=== PATIENT | male | born 1960 | race Caucasian/White ===

== ENCOUNTER 2020-04-23 09:52 | Outpatient (NON) | payer OTHER, SELFPAY | END 2020-04-23 09:53 | LOC: ANHLAB 09:53 | PROVIDERS: PCP Internal Medicine; Visit Provider Orthopaedic Surgery | DX: M70.41 Prepatellar bursitis, right knee (principal) | CPT/HCPCS: 87070; 87075; 87147; 87186; 87205 ==

== ENCOUNTER 2024-12-28 16:13 | Emergency (ER) | payer OTHER, SELFPAY ==
--- OUTSIDE RECORDS SUMMARY | 2024-12-28 16:18 | XMS_ITS | Encounter Summary ---
Author Organization [facility] Address [address] [place] [address] Care Team Providers Care Ethnoarchaeology Professor Name Role Phone Kale Hartman MD Primary Care Provider [phone] Encounter Details Date Type Department Care Team (Latest Contact Info) Description 11/17/2024 Results Follow-Up [facility] Medical Group Family & Internal Medicine [facility] [address] [place] [address] [place] [id number] [place] [address] HEMOGLOBIN, GLYCOSYLATED Social History Tobacco Use Types Packs/Day Years Used Date Smoking Tobacco: Some Days Cigarettes Started: 1989 Smokeless Tobacco: Never Comments:Smokes 2-3 cigarett es every 2-3 days Alcohol Use Standard Drinks/Week Comments Not Currently 0 (1 standard drink = 0.6 oz pur e alcohol) occ PHQ-2 Answer Date Recorded Patient Health Questionnaire-2 Score 0 11/16/2024 Sex and Gender Information Value Date Recorded Sex Assigned at Male 05/25/2024 7:52 AM CASTINGS DRAFTER Legal Sex Male 8:01 PM CDT Gender Identity Male 05/15/2021 10:53 AM CASTINGS DRAFTER Sexual Orientation Straight 05/15/2021 10 :53 AM CASTINGS DRAFTER documented as of this encounter Progress Notes * Kale Hartman MD - 11/17/2024 10:58 AM CDT Pt is aware of these results and plan documented in this encounter Plan of Treatment Not on file documented as of this encounter Visit Diagnoses Not on filedocumented in this encounter Additional Health Concerns Assessment Noted Time PHQ-9 Depression Total Score: 0 09/17/19 8:28 AM CDT documented as of this encounter Care Teams Ethnoarchaeology Professor Relationship Specialty [place] [address] [place] [address] PCP - General FAMILY PRACTICE 09/02/20 documented as of this encounter
--- OUTSIDE RECORDS SUMMARY | 2024-12-28 16:18 | XMS_ITS | Encounter Summary ---
Author Organization [facility] Address [address] [place] [address] Care Team Providers Care Engraver Automatic Name Role Phone Kale Hartman MD Primary Care Provider [phone] Encounter Details Date Type Department Care Team (Late st Contact Info) Description 05/10/2023 Panera Breadt Message Enc [facility] Medical Group Family & Internal Medicine [facility] [address] [place] [address] [place] [address] [place] [address] Harman Cameron Social History Tobacco Use Types Packs/Day Years Used Date Smoking Tobacco: Some Days Cigarettes Started: 1989 Smokeless Tobacco: Never Comments:Smokes 2-3 cigarett es every 2-3 days Alcohol Use Standard Drinks/Week Comments Not Currently 0 (1 standard drink = 0.6 oz pur e alcohol) occ PHQ-2 Answer Date Recorded Patient Health Questionnaire-2 Score 0 10/07/2022 Sex and Gender Information Value Date Recorded Sex Assigned at Male 05/25/2024 7:52 AM AMPLIFIER MECHANIC Legal Sex Male 8:01 PM CDT Gender Identity Male 05/15/2021 10:53 AM AMPLIFIER MECHANIC Sexual Orientation Straight 05/15/2021 10 :53 AM AMPLIFIER MECHANIC documented as of this encounter Plan of Treatment Not on file documented as of this encounter Visit Diagnoses Not on filedocumented in this encounter Additional Health Concerns Assessment Noted Time PHQ-9 Depression Total Score: 0 09/17/19 21 8:28 AM CDT documented as of this encounter Care Teams Engraver Automatic Relationship Specialty [place] [address] [place] [address] PCP - General FAMILY PRACTICE 09/02/20 documented as of this encounter
--- OUTSIDE RECORDS SUMMARY | 2024-12-28 16:18 | XMS_ITS | Encounter Summary ---
Author Organization [facility] Address [address] [place] [address] Care Team Providers Care Ballast Regulator Operator Name Role Phone Shima Lucas MD Primary Care Provider Angela Melgar WOOD CLUB NECK WHIPPER Primary Care Provider Unav ailable Kale Hartman MD Primary Care Provider [phone] Encounter Details Date Type Department Care Team (Latest Contact Info) Description 01/31/2018 Abstract [facility] Medical Group Antonieta Elliott MD Social History Tobacco Use Types Packs/Day Years Used Date Smoking Tobacco: Never Assessed Sex and Gender Information Value Date Recorded Sex Assigned at Male 05/25/2024 7:52 AM OVERHEAD CRANE TECHNICIAN Legal Sex Male 8:01 PM CDT Gender Identity Male 05/15/2021 10:53 AM OVERHEAD CRANE TECHNICIAN Sexual Orientation Straight 05/15/2021 10 :53 AM OVERHEAD CRANE TECHNICIAN documented as of this encounter Plan of Treatment Not on file documented as of this encounter Visit Diagnoses Not on filedocumented in this encounter Additional Health Concerns Infection Onset Date Last Indicated Resolved Time MRSA 04/16/2018 04/16/2018 05/07/2022 9:16 AM OVERHEAD CRANE TECHNICIAN documented as of this encounter Care Teams Ballast Regulator Operator Relationship Specialty Start Date End Date Shima Lucas MD PCP - General INTERNAL MEDICINE 01/31/18 06/13/19 Angela Prcie NP PCP - General NURSE PRACTITIONER 06/14/19 09/01/20 [place] [address] [place] [address] PCP - General FAMILY PRACTICE 09/02/20 documented as of this encounter
--- OUTSIDE RECORDS SUMMARY | 2024-12-28 16:18 | XMS_ITS | Encounter Summary ---
Author Organization [facility] Address [address] [place] [address] Care Team Providers Care Explosives Handler Name Role Phone Kale Hartman MD Primary Care Provider [phone] Encounter Details Date Type Department Care Team (Late st Contact Info) Description 04/27/2022 Virtual Papert Message Enc [facility] Medical Group Family & Internal Medicine [facility] [address] [place] [address] Alicia Bertrand, [place] [address] [facility] [address] [place] [address] Fax number for work comp Social History Tobacco Use Types Packs/Day Years Used Date Smoking Tobacco: Some Days Cigarettes Started: 1989 Smokeless Tobacco: Never Comments:smokes 3 cigs per d ay (05/18/21) Alcohol Use Standard Drinks/Week Comments Not Currently 0 (1 standard drink = 0.6 oz pur e alcohol) occ PHQ-2 Answer Date Recorded Patient Health Questionnaire-2 Score 0 04/27/2022 Sex and Gender Information Value Date Recorded Sex Assigned at Male 05/25/2024 7:52 AM PICKLE CUTTER Legal Sex Male 8:01 PM CDT Gender Identity Male 05/15/2021 10:53 AM PICKLE CUTTER Sexual Orientation Straight 05/15/2021 10 :53 AM PICKLE CUTTER COVID-19 Exposure Response Date Recorded In the last 10 days, have yo u been in contact with someone who was confirmed or suspected to have Coronavirus/COVID-19? No / Unsure 04/29/2022 2:24 PM PICKLE CUTTER documented as of this encounter Functional Status * Over the past 2 weeks, how often have you been bothered by any of the following problems? Question Answer Date of Assessment Author Status Little interest or pleasure in doing things Not at all 04/27/2022 1:30 PM PICKLE CUTTER Lonnie Munoz MA Act dario Feeling down, depressed, or hopeless Not at all 04/27/2022 1:30 PM PICKLE CUTTER Lonnie Munoz MA Active Patient Health Questionnaire-2 Score 0 04/27/2022 1:30 PM PICKLE CUTTER Lonnie Munoz MA Active documented as of this encounter Plan of Treatment Not on file documented as of this encounter Visit Diagnoses Not on filedocumented in this encounter Additional Health Concerns Infection Onset Date Last Indicated Resolved Time MRSA 04/16/2018 04/16/2018 05/07/2022 9:16 AM PICKLE CUTTER Assessment Noted Time PHQ-9 Depression Total Score: 0 09/17/19 8:28 AM CDT documented as of this encounter Care Teams Explosives Handler Relationship Specialty [place] [address] [place] [address] PCP - General FAMILY PRACTICE 09/02/20 documented as of this encounter
--- OUTSIDE RECORDS SUMMARY | 2024-12-28 16:18 | XMS_ITS | Encounter Summary ---
Author Organization [facility] Address [address] [place] [address] Care Team Providers Care Electric Refrigerator Preparer Name Role Phone Shima Lucas MD Primary Care Provider Angela Melgar PACKAGING OPERATOR Primary Care Provider Unav ailable Kale Hartman MD Primary Care Provider [phone] Encounter Details Date Type Department Care Team (Late st Contact Info) Description 06/18/[address] [facility] Conversion , Generic Conversion, Social History Tobacco Use Types Packs/Day Years Used Date Smoking Tobacco: Never Assessed Sex and Gender Information Value Date Recorded Sex Assigned at Male 05/25/2024 7:52 AM LOAN COUNSELOR Legal Sex Male 8:01 PM CDT Gender Identity Male 05/15/2021 10:53 AM LOAN COUNSELOR Sexual Orientation Straight 05/15/2021 10 :53 AM LOAN COUNSELOR documented as of this encounter Plan of Treatment Not on file documented as of this encounter Visit Diagnoses Not on filedocumented in this encounter Additional Health Concerns Infection Onset Date Last Indicated Resolved Time MRSA 04/16/2018 04/16/2018 05/07/2022 9:16 AM LOAN COUNSELOR documented as of this encounter Care Teams Electric Refrigerator Preparer Relationship Specialty Start Date End Date Shima Lucas MD PCP - General INTERNAL MEDICINE 01/31/18 06/13/19 Angela Price NP PCP - General NURSE PRACTITIONER 06/14/19 09/01/20 [place] [address] [place] [address] PCP - General FAMILY PRACTICE 09/02/20 documented as of this encounter
--- OUTSIDE RECORDS SUMMARY | 2024-12-28 16:18 | XMS_ITS | Encounter Summary ---
Author Organization [facility] Address [address] [place] [address] Care Team Providers Care Infantryman Name Role Phone Kale Hartman MD Primary Care Provider [phone] Encounter Details Date Type Department Care Team (Late st Contact Info) Description 06/15/2023 Emunamedicat Message Enc [facility] Medical Group Family & Internal Medicine [facility] [address] [place] [address] [place]man [place] [id number] [place] [address] Request for a concrete mason Social History Tobacco Use Types Packs/Day Years [...] Sex Assigned at Male 05/25/2024 7:52 AM HAT CONDITIONER Legal Sex Male 8:01 PM CDT Gender Identity Male 05/15/2021 10:53 AM HAT CONDITIONER Sexual Orientation Straight 05/15/2021 10 :53 AM HAT CONDITIONER documented as of this encounter Plan of Treatment Not on file documented as of this encounter Visit Diagnoses Not on filedocumented in this encounter Additional Health Concerns Assessment Noted Time PHQ-9 Depression Total Score: 0 09/17/19 21 8:28 AM CDT documented as of this encounter Care Teams Infantryman Relationship Specialty [place] [address] [place] [address] PCP - General FAMILY PRACTICE 09/02/20 documented as of this encounter
--- OUTSIDE RECORDS SUMMARY | 2024-12-28 16:18 | XMS_ITS | Encounter Summary ---
Author Organization [facility] Address [address] [place] [address] Care Team Providers Care Tip Cementer Name Role Phone Kale Hartman MD Primary Care Provider [phone] Encounter Details Date Type Department Care Team (Late st Contact Info) Description 05/25/2024 [place] Digitalt Message Enc [facility] Medical Group Family & Internal Medicine [facility] [address] [place] [address] [place]man [place] [id number] [place] [address] Lantus Social History Tobacco Use Types Packs/Day Years [...] Sex Assigned at Male 05/25/2024 7:52 AM CREDIT PORTFOLIO MANAGER Legal Sex Male 8:01 PM CDT Gender Identity Male 05/15/2021 10:53 AM CREDIT PORTFOLIO MANAGER Sexual Orientation Straight 05/15/2021 10 :53 AM CREDIT PORTFOLIO MANAGER documented as of this encounter Progress Notes * Nat Mckeon MA - 05/28/2024 11:19 AM CST Informed pt of this IT PORTFOLIO MANAGER documented in this encounter Plan of Treatment Not on file documented as of this encounter Visit Diagnoses Not on filedocumented in this encounter Additional Health Concerns Assessment Noted Time PHQ-9 Depression Total Score: 0 09/17/19 21 8:28 AM CDT documented as of this encounter Care Teams Tip Cementer Relationship Specialty [place] [address] [place] [address] PCP - General FAMILY PRACTICE 09/02/20 documented as of this encounter
--- OUTSIDE RECORDS SUMMARY | 2024-12-28 16:18 | XMS_ITS | Encounter Summary ---
Author Organization [facility] Address [address] [place] [address] Care Team Providers Care Cane Weigher Name Role Phone Kale Hartman MD Primary Care Provider [phone] Encounter Details Date Type Department Care Team (Late st Contact Info) Description 03/06/2023 Implanett Message Enc [facility] Medical Group Family & Internal Medicine [facility] [id number] [place] [address] [place] [id number] [place] [address] Ozempic Social History Tobacco Use Types Packs/Day Years [...] Sex Assigned at Male 05/25/2024 7:52 AM PLANT DIRECTOR Legal Sex Male 8:01 PM CDT Gender Identity Male 05/15/2021 10:53 AM PLANT DIRECTOR Sexual Orientation Straight 05/15/2021 10 :53 AM PLANT DIRECTOR documented as of this encounter Progress Notes * Nat Mckeon MA - 03/07/2023 4:54 PM CST [facility] T DIRECTOR * Alicia Menezes RN - 03/07/2023 8:57 AM CST Printed to discuss with / Devan T DIRECTOR documented in this encounter Plan of Treatment Not on file documented as of this encounter Visit Diagnoses Not on filedocumented in this encounter Additional Health Concerns Assessment Noted Time PHQ-9 Depression Total Score: 0 09/17/19 8:28 AM CDT documented as of this encounter Care Teams Cane Weigher Relationship Specialty [place] [address] [place] [address] PCP - General FAMILY PRACTICE 09/02/20 documented as of this encounter
--- OUTSIDE RECORDS SUMMARY | 2024-12-28 16:18 | XMS_ITS | Encounter Summary ---
Author Organization [facility] Address [address] [place] [address] Care Team Providers Care Primer Waterproofing Machine Adjuster Name Role Phone Kale Hartman MD Primary Care Provider [phone] Encounter Details Date Type Department Care Team (Late st Contact Info) Description 04/07/2022 Dealer Ignition Message Enc [facility] Medical Group Family & Internal Medicine [facility] [address] [place] [address] Alicia Bertrand, SUPERVISOR SHIPPING [address] [facility] [address] [place] [address] Question regarding XR SHOULDER LT 3V Social History Tobacco Use Types Packs/Day Years Used Date Smoking Tobacco: Some Days Cigarettes Started: 1989 Smokeless Tobacco: Never Comments:smokes 3 cigs per d ay (05/18/21) Alcohol Use Standard Drinks/Week Comments Not Currently 0 (1 standard drink = 0.6 oz pur e alcohol) occ PHQ-2 Answer Date Recorded PHQ-2 Score - If the patient scores above 3, please move on to questions 3-9 0 11/16/2021 Sex and Gender Information Value Date Recorded Sex Assigned at Male 05/25/2024 7:52 AM CYBER CRIME INVESTIGATOR Legal Sex Male 8:01 PM CDT Gender Identity Male 05/15/2021 10:53 AM CYBER CRIME INVESTIGATOR Sexual Orientation Straight 05/15/2021 10 :53 AM CYBER CRIME INVESTIGATOR COVID-19 Exposure Response Date Recorded In the last 10 days, have yo u been in contact with someone who was confirmed or suspected to have Coronavirus/COVID-19? No / Unsure 04/05/2022 12:37 PM CYBER CRIME INVESTIGATOR documented as of this encounter Plan of Treatment Not on file documented as of this encounter Visit Diagnoses Not on filedocumented in this encounter Additional Health Concerns Infection Onset Date Last Indicated Resolved Time MRSA 04/16/2018 04/16/2018 05/07/2022 9:16 AM CYBER CRIME INVESTIGATOR Assessment Noted Time PHQ-9 Depression Total Score: 0 09/17/19 8:28 AM CDT documented as of this encounter Care Teams Primer Waterproofing Machine Adjuster Relationship Specialty [place] [address] [place] [address] PCP - General FAMILY PRACTICE 09/02/20 documented as of this encounter
--- OUTSIDE RECORDS SUMMARY | 2024-12-28 16:18 | XMS_ITS | Encounter Summary ---
Author Organization [facility] Address [address] [place] [address] Care Team Providers Care Diesel Engine Mechanic Name Role Phone Kale Hartman MD Primary Care Provider [phone] Encounter Details Date Type Department Care Team (Late st Contact Info) Description 08/11/2022 Neuravit Message Enc [facility] Medical Group Family & Internal Medicine [facility] [address] [place] [address] [place] [address] [place] [address] A1C test Social History Tobacco Use Types Packs/Day Years Used Date Smoking Tobacco: Some Days Cigarettes Started: 1989 Smokeless Tobacco: Never Comments:Smokes 2-3 cigarett es every 2-3 days Alcohol Use Standard Drinks/Week Comments Not Currently 0 (1 standard drink = 0.6 oz pur e alcohol) occ PHQ-2 Answer Date Recorded Patient Health Questionnaire-2 Score 0 06/01/2022 Sex and Gender Information Value Date Recorded Sex Assigned at Male 05/25/2024 7:52 AM BILLBOARD ERECTOR HELPER Legal Sex Male 8:01 PM CDT Gender Identity Male 05/15/2021 10:53 AM BILLBOARD ERECTOR HELPER Sexual Orientation Straight 05/15/2021 10 :53 AM BILLBOARD ERECTOR HELPER COVID-19 Exposure Response Date Recorded In the last 10 days, have yo u been in contact with someone who was confirmed or suspected to have Coronavirus/COVID-19? No / Unsure 08/11/2022 2:24 PM CDT documented as of this encounter Plan of Treatment Not on file documented as of this encounter Visit Diagnoses Not on filedocumented in this encounter Additional Health Concerns Assessment Noted Time PHQ-9 Depression Total Score: 0 09/17/19 21 8:28 AM CDT documented as of this encounter Care Teams Diesel Engine Mechanic Relationship Specialty [place] [address] [place] [address] PCP - General FAMILY PRACTICE 09/02/20 documented as of this encounter
--- OUTSIDE RECORDS SUMMARY | 2024-12-28 16:18 | XMS_ITS | Encounter Summary ---
Author Organization [facility] Address [address] [place] [address] Care Team Providers Care Repeat Chief Name Role Phone Kale Hartman MD Primary Care Provider [phone] Encounter Details Date Type Department Care Team (Late st Contact Info) Description 04/17/2022 Mobile Content Networkst Message Enc [facility] Medical Group Family & Internal Medicine [facility] [address] [place] [address] Alicia Bertrand, MANUFACTURING EXECUTIVE [address] [facility] [address] [place] [address] Left shoulder pain Social History Tobacco Use Types Packs/Day Years [...] Sex Assigned at Male 05/25/2024 7:52 AM KNOT BORER Legal Sex Male 8:01 PM CDT Gender Identity Male 05/15/2021 10:53 AM KNOT BORER Sexual Orientation Straight 05/15/2021 10 :53 AM KNOT BORER COVID-19 Exposure Response Date Recorded In the last 10 days, have yo u been in contact with someone who was confirmed or suspected to have Coronavirus/COVID-19? No / Unsure 04/19/2022 2:30 PM KNOT BORER documented as of this encounter Progress Notes * Hans Pino RN - 04/20/2022 3:10 PM CST Pt has not seen ortho yet. I provided him with the referral dept number to see where it was at. I see it was sent to Dr. Hickman. BORER * Alicia Bertrand NP - 04/20/2022 11:08 AM CST Have you been scheduled with orthopedics yet? BORER * Hans Pino RN - 04/19/2022 9:06 AM CST Please advise BORER documented in this encounter Plan of Treatment Not on file documented as of this encounter Visit Diagnoses Not on filedocumented in this encounter Additional Health Concerns Infection Onset Date Last Indicated Resolved Time MRSA 04/16/2018 04/16/2018 05/07/2022 9:16 AM KNOT BORER Assessment Noted Time PHQ-9 Depression Total Score: 0 09/17/19 8:28 AM CDT documented as of this encounter Care Teams Repeat Chief Relationship Specialty [place] [address] [place] [address] PCP - General FAMILY PRACTICE 09/02/20 documented as of this encounter
--- OUTSIDE RECORDS SUMMARY | 2024-12-28 16:18 | XMS_ITS | Encounter Summary ---
Author Organization [facility] Address [address] [place] [address] Care Team Providers Care Cement Finisher Name Role Phone Kale Hartman MD Primary Care Provider [phone] Encounter Details Date Type Department Care Team (Late st Contact Info) Description 07/19/[address] [facility] Medical Group Family & Internal Medicine [facility] [address] [place] [address] [place] [address] [place] [address] Orthopedic Referral Social History Tobacco Use Types Packs/Day Years [...] Sex Assigned at Male 05/25/2024 7:52 AM GOVERNMENT AFFAIRS DIRECTOR Legal Sex Male 8:01 PM CDT Gender Identity Male 05/15/2021 10:53 AM GOVERNMENT AFFAIRS DIRECTOR Sexual Orientation Straight 05/15/2021 10 :53 AM GOVERNMENT AFFAIRS DIRECTOR documented as of this encounter Progress Notes * Nat Mckeon MA - 07/20/2024 10:32 AM CDT Noted will informed that appt was made * Ebony Soto LPN - 07/20/2024 10:24 AM CDT Pt made appt for 07/24/24 with Devan documented in this encounter Plan of Treatment Not on file documented as of this encounter Visit Diagnoses Not on filedocumented in this encounter Additional Health Concerns Assessment Noted Time PHQ-9 Depression Total Score: 0 09/17/19 8:28 AM CDT documented as of this encounter Care Teams Cement Finisher Relationship Specialty [place] [address] [place] [address] PCP - General FAMILY PRACTICE 09/02/20 documented as of this encounter
--- OUTSIDE RECORDS SUMMARY | 2024-12-28 16:18 | XMS_ITS | Clinical Summary ---
Author Organization [facility] Address [address] [place] [id number] Care Team Providers Care Bailiff Name Role Phone Kale Hartman MD Primary Care Provider [phone] Allergies Active Allergy Reactions Criticality Noted Date Comments Penicillins Unknown,Anaphylaxis,Rash High 01/20/2005 Medications aspirin EC (ASPIRIN EC) 81 MG tablet Take 1 tablet (81 mg total) by mouth daily. Active vitamin D3, cholecalciferol, 5000 UNITS capsule cholecalciferol (vitamin D3) 125 mcg (5,000 unit) capsule TK 1 T PO QD Active omeprazole 20 MG capsule Take 1 capsule (20 mg total) by mouth daily. Active vitamin B-12 (CYANOCOBALAMIN) 1000 mcg tablet Take 1 tablet (1,000 mcg total) by mouth daily. Active Potassium 99 MG tablet Take 1 tablet by mouth daily. OTC Active vitamin C 1000 MG tablet Take 1 tablet (1,000 mg total) by mouth daily. Active Glucose Blood test stripIndications:Diab etes mellitus ([facility] HHS/HCC) Use to check blood sugar daily 100 strip 1 2022 Active SYNJARDY XR 25-1000 MG TABLET SR 24 HRIndications:Type 2 diabetes mellitus with unspecified complications ([facility] HHS/HCC) TAKE 1 TABLET BY MOUTH EVERY DAY 90 tablet 1 2024 Active insulin glargine (LANTUS SOLOSTAR) 100 UNIT/ML injection (PEN)Indications:Type 2 diabetes mellitus with unspecified complications ([facility] HHS/HCC) INJECT 10 UNITS INTO THE SKIN NIGHTLY AT BEDTIME 15 mL 2024 Active Insulin Pen Needle (BD PEN NEEDLE MINI ULTRAFINE) 31G X 5 MM MiscIndications:Type 2 diabetes mellitus without complication, with long-term current use of insulin ([facility]) USE ONE PEN NEEDLE DAILY TO INJECT LANTUS 90 each 1 2024 Active pioglitazone (ACTOS) 15 MG tabletIndications:Typ e 2 diabetes mellitus with unspecified complications ([facility]) Take 1 tablet by mouth once daily 90 tablet 2024 Active dulaglutide (TRULICITY) 3 MG/0.5ML injectionIndications: Type 2 diabetes mellitus with unspecified complications ([facility]) Inject 3 mg into the skin once a week. 2 mL 2 2024 Active atorvastatin (LIPITOR) 40 MG tabletIndications:Pur e hypercholesterolemia Take 1 tablet by mouth once daily 90 tablet 2024 Active lisinopril (PRINIVIL) 20 MG tabletIndications:Amanda benavides hypertension Take 1 tablet by mouth once daily 90 tablet 2024 Active atorvastatin (LIPITOR) 40 MG tabletIndications:Pur e hypercholesterolemia Take 1 tablet by mouth once daily 90 tablet 12/14 Discontinued dulaglutide (TRULICITY) 1.5 MG/0.5ML injectionIndications: Type 2 diabetes mellitus with unspecified complications ([facility]) Inject 1.5 mg into the skin once a week. 2 mL 5 11/29 Discontinued lisinopril (PRINIVIL) 20 MG tabletIndications:Amanda benavides hypertension Take 1 tablet by mouth once daily 90 tablet 12/24 Discontinued Active Problems Problem Noted Date Diagnosed Date Acute pain of left shoulder 04/14/2022 Encounter for screening colonoscopy 04/08/2022 Overview (04/08/2022): Added automatically from request for surgery [id number] Pain in right knee 06/10/2020 Prepatellar bursitis of right knee 03/18/2020 Serum calcium elevated 08/27/2014 Abnormal blood finding 05/24/2014 Generalized anxiety disorder 05/25/2013 Type 2 diabetes mellitus wit hout complication, with long-term current use of insulin ([facility]) 05/25/2013 Abnormal liver enzymes 09/05/2012 Fracture of foot 04/24/2012 Abdominal hernia 02/22/2012 Other specified dorsopathies, thoracic region Scabies 02/09/2012 Depression 01/17/2012 Fatigue 10/18/2011 Hyperlipidemia 10/18/2011 Hypertension 10/18/2011 Obstructive sleep apnea 10/18/2011 GERD (gastroesophageal reflux disease) Resolved Problems Problem Noted Date Diagnosed Date Resolved Date Encounter for preventive health examination 10/18/2011 09/22/2020 Encounters Date Type Department Care Team Description 11/17/2024 Results Follow-Up [facility] [address] [phone] Kale Hartman MD HEMOGLOBIN, GLYCOSYLATED 11/16/2024 3:40 PM CDT Office Visit [facility] [address] [phone] Kale Hartman MD Follow Up 11/16/2024 Travel from Last 3 Months Immunizations Immunization Administration Dates Next Due Influenza (Generic) 01/16/2013,01/17/2012 PFIZER COVID-19 (ORIGINAL FO RMULATION, PURPLE CAP) mRNA, LNP-S, PF, 30 MCG/0.3 ML DOSE 12/28/2020,12/07/2020 Td 08/17/2004 Tdap (Generic) 09/03/2016 Family History Medical History Relation Comments Diabetes Father Heart Disease Father Hyperlipidemia Father Diabetes Mother Heart Disease Mother Relation Status Comments Father Mother Social History Tobacco Use Types Packs/Day Years Used Date Smoking Tobacco: Some Days Cigarettes Started: 1989 Smokeless Tobacco: Never Tobacco Cessation:Ready to Q uit: No; Counseling Given: Yes Comments:Smokes 2-3 cigarettes every 2-3 days Alcohol Use Standard Drinks/Week Comments Not Currently 0 (1 standard drink = 0.6 oz pur e alcohol) occ PHQ-2 Answer Date Recorded Patient Health Questionnaire-2 Score 0 11/16/2024 Sex and Gender Information Value Date Recorded Sex Assigned at Male 05/25/2024 7:52 AM MANAGER OF PHARMACY Legal Sex Male 8:01 PM CDT Gender Identity Male 05/15/2021 10:53 AM MANAGER OF PHARMACY Sexual Orientation Straight 05/15/2021 10 :53 AM MANAGER OF PHARMACY Last Filed Vital Signs Vital Sign Reading Time Taken Comments Blood Pressure 135/84 11/16/2024 3:32 PM CDT Pulse 87 11/16/2024 3:32 PM CDT Temperature 36.6 C (97.8 F) 11/16/2024 3:32 PM CDT Respiratory Rate 16 11/16/2024 3:32 PM CDT Oxygen Saturation 97% 11/16/2024 3:32 PM CDT Inhaled Oxygen Concentration - - Weight 93.4 kg (206 lb) 11/16/2024 3:32 PM CDT Height 175.3 cm (5' 9) 11/16/2024 3:32 PM CDT Body Mass Index 30.42 11/16/2024 3:32 PM CDT Plan of Treatment Health Maintenance Due Date Last Done Comments Kidney Health Evaluation 1962 Diabetes: Retinopathy Eye Exam 1980 Hepatitis C 1980 Pneumococcal Vaccine: 50+ Years (1 of 2 - PCV) 1981 Zoster Vaccines (1 of 2) 2012 Annual Physical 09/16/2021 09/16/2020 RSV Immunization or 60+ Years (1 - Risk 60-74 years 1-dose series) 2022 COVID-19 Vaccine (3 - 2024- season) 2024 12/28/2020, 12/07/2020 Hemoglobin A1C 05/19/2025 11/16/2024, 02/2 09/2024, 11/10/2023, Additional history exists Lipid Panel 05/24/2025 05/24/2024 DTaP, Tdap and Td Vaccines (2 - Td or Tdap) 09/03/2026 09/03/2016, 08/17/2004 Colorectal Cancer Screening Colonoscopy (10 Years) 05/07/2032 05/07/2022, 05/07/2022 PHQ-2 (Physician [place]) Completed 11/16/2024 Meningococcal B Vaccine Aged Out No l onger eligible based on patient's age to complete this topic Meningococcal Vaccine Aged Out No najma jennifer eligible based on patient's age to complete this topic RSV Immunizations Under 20 Months Aged Out No longer eligible based on patient's age to complete this topic Procedures Procedure Name Priority Date/Time Associated Diagnosis Comments COLLECT.CAPILLARY (FNGR,HEEL,EAR) Routine 11/16/2024 3:34 PM CDT Type 2 diabetes mellitus with unspecified complications (CMS/HCC HHS/HCC) HEMOGLOBIN, GLYCOSYLATED Routine 11/16/2024 Type 2 diabetes mellitus with unspecified complications (CMS/HCC HHS/HCC) LIPID PANEL Routine 05/24/2024 4:04 PM MANAGER OF PHARMACY Pure hypercholesterolemia COLONOSCOPY Routine 05/07/2022 7:22 AM MANAGER OF PHARMACY from Last 3 Months or Most Recently Relevant to Health Maintenance Results * HEMOGLOBIN, GLYCOSYLATED (11/16/2024) HGB A1C 8.0 % -[id number] Justina CAILIN [facility] 11/16/2024 Kale Hartman MD LABORATORY Final Resul t -[id number] [facility] [address] [place] [address], * LIPID PANEL (05/24/2024 4:04 PM MANAGER OF PHARMACY) CHOLESTEROL 125 <200 mg/dL [facility] HDL 43 > OR = 40 mg/dL [facility] TRIGLYCERIDES 74 <150 mg/dL [facility] LDL (CALCULATED) 67 mg/dL (calc) [facility] Comment: Reference range: <100 Desirable range <100 mg/dL for primary prevention; <70 mg/dL for patients with CHD or diabetic patients with > or = 2 CHD risk factors. LDL-C is now calculated using the Fabio-Kimo calculation, which is a validated novel method providing better accuracy than the Friedewald equation in the estimation of LDL-C. Fabio SS et al. DANNY. 2013;310(19): 6304-6515 (http://education.StormWind/faq/SNP320) CHOL/HDL RATIO 2.9 <5.0 (calc) [facility] NON HDL CHOLESTEROL 82 <130 mg/dL (calc) [facility] Comment: For patients with diabetes plus 1 major ASCVD risk factor, treating to a non-HDL-C goal of <100 mg/dL (LDL-C of <70 mg/dL) is considered a therapeutic option. 05/24/2024 4:04 PM MANAGER OF PHARMACY 05/25/2024 5:36 AM MANAGER OF PHARMACY Narrative Resulting Agency Comment Performing Organization Information: Site ID: [id number] Name: [facility] [facility] Address: [address] [address] Director: Michelle Conrad MD us Kale Hartman MD LABORATORY Final Resul t STACY MARAVILLA [employer] [facility] [address] [address], from Last 3 Months or Most Recently Relevant to Health Maintenance Insurance [facility] [place] Care Teams Bailiff Relationship Specialty [place] [address] [place] [address] PCP - General FAMILY PRACTICE 09/02/20
[2024-12-28 16:23] VITALS: BP 113/65; PULSE 90; RESP 18; TEMP 36.4; O2SAT 97
--- NOTE | 2024-12-28 16:39 | ED.EYEPROB ---
HPI - Eye Problem General Chief complaint: Eye Problems Stated complaint: RT Eye Problem Time Seen by Provider: 12/28/24 16:25 Source: patient and RN notes reviewed Mode of arrival: ambulatory Limitations: no limitations History of Present Illness HPI Narrative: 64-year-old male presents Express Care complaining of high redness to the right eye for approximately 2 days. Patient denies any injuries to his eyes. Patient only noticed it because someone at work told him his right eye was red. Patient denies any vision problems, double vision, blurry vision, photophobia, headaches, nausea, vomiting, drainage, discharge, eye pain, swelling, fevers, upper respiratory symptoms, or any other symptoms. Patient said he might have sneezed or cough but not entirely sure. Patient does have a history of diabetes. Related Data Home Medications ?Medication ?Instructions ?Recorded ?Confirmed ?Last Taken ?Type aspirin 81 mg tablet,delayed 81 mg PO DAILY 05/17/19 05/19/20 Unknown History release (Cheryl Low Dose Aspirin) dulaglutide 3 mg/0.5 mL mg subcut 12/28/24 Unknown History subcutaneous pen injector (Trulicity) insulin glargine 100 unit/mL (3 unit subcut 12/28/24 Unknown History mL) subcutaneous pen (Lantus Solostar U-100 Insulin) pioglitazone 15 mg tablet mg 12/28/24 Unknown History Allergies Allergy/AdvReac Type Severity Reaction Status Date / Time Penicillins Allergy Mild hives Verified 12/28/24 16:16 Review of Systems Review of Systems: CONSTITUTIONAL: Denies fever, chills, or sweats. EYES: Denies visual changes, photophobia, or discharge. Positive for redness. ENT: Denies rhinorrhea, congestion, sore throat, or otalgia. CARDIOVASCULAR: Denies chest pain, palpitations, or edema. RESPIRATORY: Denies cough or dyspnea. GASTROINTESTINAL: Denies abdominal pain, nausea, vomiting, or diarrhea. GENITOURINARY: Denies dysuria or hematuria. SKIN: Denies rash or itching. MUSCULOSKELETAL: Denies back pain, joint pain, or myalgia. NEUROLOGIC: Denies headache, numbness, or weakness. PSYCHIATRIC: Denies anxiety or depression. All other systems reviewed are negative, except as documented in HPI. [facility] Family History Family History Father Family history of diabetes mellitus in first degree relative Family history of heart disease in male family member before age 55 Social History Social History Smoking status: Light tobacco smoker Second hand tobacco smoke exposure: No Alcohol intake: never Comments At the time of my signature, I reviewed and agree with the nursing past medical, surgical, social, and family history. There is no relevant family history pertinent to the patient complaint. Exam Narrative: GENERAL: This is a well-nourished, well-developed adult, in no apparent distress. They are non ill-appearing, nontoxic appearing. HEAD: normocephalic, atraumatic. EYES: Sclera clear/white. Conjunctiva normal. Right subconjunctival hemorrhage present to the lateral eye. Left eye are remarkable. Vision is grossly intact. Extraocular movements intact. Pupils PERRLA. Upper and lower bilateral eyelids are normal. EARS: External ears normal,Hearing grossly intact. NOSE: External nose normal THROAT: Mucous membranes moist, NECK: Neck supple, CARDIOVASCULAR: Regular rate and rhythm RESPIRATORY: Respiratory rate normal, respiratory effort nonlabored, no respiratory distress SKIN: warm, Dry, intact with no suspicious lesions or rash, good texture and turgor. NEURO: awake, alert, and oriented to person, place and time. There were no obvious focal neurologic abnormalities. EXTREMITIES: No joint tenderness, effusion, or edema noted. Course Course Emergency Course: Portions of this record may have been created with voice recognition software Level of Care: Express Care Visit Vital Signs Vital signs: Vital Signs Temperature 97.6 F 12/28/24 16:23 Pulse Rate 90 12/28/24 16:23 Respiratory Rate 18 12/28/24 16:23 Blood Pressure 113/65 12/28/24 16:23 Pulse Oximetry 97 12/28/24 16:23 Oxygen Delivery Room Air 12/28/24 16:23 Temperature 97.6 F 12/28/24 16:23 Pulse Rate 90 12/28/24 16:23 Respiratory Rate 18 12/28/24 16:23 Blood Pressure 113/65 12/28/24 16:23 Pulse Oximetry 97 12/28/24 16:23 Oxygen Delivery Room Air 12/28/24 16:23 Reviewed MDM - Eye Problem MDM Narrative Medical decision making narrative: Visual acuity normal. Patient wears corrective lenses, no contact. Appears patient has subconjunctival hemorrhage to right eye. No pain or any concerning injuries. No concerns for globe rupture. Advised patient resolve on its own without any issues, strict ER precautions discussed with patient states he developed eye pain, vision problems, nausea vomiting headaches, visual changes, or any serious concerns. Discussed with patient follow-up with eye doctor if symptoms are persisting after 3 weeks. Discussed physical exam findings. Advised supportive measures and signs/symptoms to go to the ER. Pt is appropriate for outpt treatment and f/u. Differential Diagnosis Differential diagnosis: Likely corneal abrasion, conjunctivitis, subconjunctival hemorrhage and other (ptterygium, pinguecula) Critical Care Time Critical Care Time Critical Care Time: No Discharge Plan Discharge Clinical Impression: Subconjunctival hemorrhage Qualifiers: Laterality: right Qualified Code(s): H11.31 - Conjunctival hemorrhage, right eye Patient Disposition: Home Condition: Stable Instructions: Antibiotic Form Additional Instructions: It is likely have a subconjunctival hemorrhage. These are benign and can occur spontaneously and will resolve on their own without any issues. This should resolve over the next 2-3 weeks. It can also occur by sneezing, coughing or even vomiting or certain injuries to the eye. Please follow-up with an eye doctor if it still persists after 3 weeks. Go to the ER immediately if you developed eye pain, vision problems, headaches, fevers, nausea, vomiting, or any serious concerns. Patient Language: Portuguese Prescriptions: No Action pioglitazone 15 mg tablet insulin glargine [Lantus Solostar U-100 Insulin] 100 unit/mL (3 mL) insulin pen SUBCUT Trulicity 3 mg/0.5 mL pen injector SUBCUT aspirin [Cheryl Low Dose Aspirin] 81 mg tablet,delayed release (DR/EC) 81 mg PO DAILY cholecalciferol (vitamin D3) 125 mcg (5,000 unit) tablet 125 mcg PO DAILY Qty: 90 1RF atorvastatin 40 mg tablet 40 mg PO DAILY 90 Days Qty: 90 1RF lisinopril 20 mg tablet 20 mg PO DAILY Qty: 90 1RF Synjardy XR 25-1,000 mg tablet, IR - ER, biphasic 24hr 1 tablet PO DAILY Qty: 90 1RF Ozempic 1 mg/dose (2 mg/1.5 mL) pen injector 1 mg SUB-Q WEEKLY 90 Days Qty: 9.75 1RF Follow-up/Referrals: Devan,Kale Isaac MD [Primary Care Provider] Time of Disposition: 16:37
== END 2024-12-28 16:40 | disposition home or self-care (01) ==
PROVIDERS: PCP Family Medicine
DX: H11.31 Conjunctival hemorrhage, right eye (principal); F17.200 Nicotine dependence, unspecified, uncomplicated; E11.9 Type 2 diabetes mellitus without complications; Z79.4 Long term (current) use of insulin; Z79.85 Long-term (current) use of injectable non-insulin antidiabetic drugs; Z79.82 Long term (current) use of aspirin
CPT/HCPCS: 99212; G0463